=== PATIENT | female | born 1950 | race Caucasian/White ===

== ENCOUNTER 2016-03-15 07:16 | Day surgery (SDC) | payer OTHER ==
[2016-03-15] VITALS (11 sets, daily range): BP systolic 112–127; BP diastolic 67–79; PULSE 53–75; RESP 18; TEMP 97.7–98.6; O2SAT 95–100
[~2016-03-15] VITALS: Ht 165.1 cm; Wt 77.3 kg
[~2016-03-15 07:16] MED LIST: AMLO10 PO; BUPR-197 PO; ESTR0.5T PO; IRON18TA2 PO; LEXA20TA PO; ROPI1TAB72 PO; TAB-TAB PO; VITA10002 PO; VITA400C70 PO; XANA0.5T PO; Z.0.COMMODE-3:1; Z.0.CPM; Z.0.WALKERFRONT
[2016-03-15] MEDS ORDERED: METOPROLOL TARTRATE 25 MG TAB PO PRN (08:30)
[2016-03-15] MEDS ORDERED: LACTATED RINGER'S 1000 ML IV SCH (08:30)
[2016-03-15] MEDS ORDERED: LORazepam 1 MG TAB SL SCH (08:30)
[2016-03-15] MEDS ORDERED: INSULIN HUMAN REGULAR 1,000 UNITS/10 ML VIAL SQ PRN (08:30)
[2016-03-15] MEDS: SODIUM CHLORID 0.9% 500 ML INJ 500 ML IV SCH (08:30)
[2016-03-15] MEDS: SODIUM CHLORID 0.9% 500 ML IV SCH (08:30)
[2016-03-15] MEDS ORDERED: LEVOFLOXACIN 500 MG PREMIX INJ 100 ML IV ONE (08:30)
[2016-03-15 08:45] LABS: AUTOMATED NEUTROPHIL # 6.6 TH/MM3 (1.8-7.7); BASOPHIL # 0.1 TH/MM3 (0-0.2); BASOPHIL % 0.6 % (0.0-2.0); EOSINOPHIL # 0.1 TH/MM3 (0-0.4); EOSINOPHIL % 1.5 % (0.0-4.0); HEMATOCRIT 36.4 % (35.0-46.0); HEMO FLAGS DIFF FINAL; LYMPH % 16.6 % (9.0-44.0); LYMPHOCYTE # 1.4 TH/MM3 (1.0-4.8); MEAN CELL VOLUME 83.2 FL (80.0-100.0); MEAN CORPUSCULAR HEMOGLOBIN 27.3 PG (27.0-34.0); MEAN CORPUSCULAR HGB CONC 32.8 % (32.0-36.0); MONO % 5.3 % (0.0-8.0); PLATELET COUNT 239 TH/MM3 (150-450); RED BLOOD COUNT 4.38 MIL/MM3 (4.00-5.30); RED CELL DISTRIBUTION WIDTH 14.6 % (11.6-17.2); WHITE BLOOD COUNT 8.7 TH/MM3 (4.0-11.0)
[2016-03-15] MEDS ORDERED: AMLO5TAB2 PO (08:50)
[2016-03-15] MEDS ORDERED: BUPR150CR PO (08:50)
[2016-03-15] MEDS ORDERED: FERR325T PO (08:50)
[2016-03-15] MEDS ORDERED: MULTTAB67 PO (08:50)
[2016-03-15] MEDS ORDERED: LEXA20TA PO (08:50)
[2016-03-15] MEDS ORDERED: VITA10002 PO (08:50)
[2016-03-15] MEDS ORDERED: ALPR.5 PO (08:50)
[2016-03-15] MEDS ORDERED: APIX5TAB PO (08:50)
[2016-03-15] MEDS ORDERED: HYDR-3288 PO (08:50)
[2016-03-15] MEDS ORDERED: ROPI1TAB PO (08:50)
[2016-03-15] MEDS ORDERED: ESTR0.5T PO (08:50)
[2016-03-15 09:11] LABS: APTT (PATIENT) 28.6 SEC (24.3-30.1); INTERNATIONAL NORMALIZED RATIO 0.9 RATIO; PROTHROMBIN TIME - PATIENT 10.2 SEC (9.8-11.6)
[2016-03-15 09:21] LABS: BICARBONATE 29.3 MEQ/L (21.0-32.0); POTASSIUM 3.6 MEQ/L (3.5-5.1)
[2016-03-15] MEDS ORDERED: HEPARIN-D5W INJ 250 ML ONE (10:39)
[2016-03-15] MEDS ORDERED: fentaNYL CITRATE 250 MCG/5 ML AMP ONE (10:39)
[2016-03-15] MEDS ORDERED: ISOPROTERENOL HCL 1 MG/5 ML AMP ONE (10:39)
[2016-03-15] MEDS ORDERED: PROTAMINE SULFATE 50 MG/5 ML VIAL ONE (10:39)
[2016-03-15] MEDS ORDERED: HEPARIN SODIUM - IV 10,000 UNITS/10 ML VIAL ONE (10:40)
[2016-03-15] MEDS ORDERED: HEPARIN-NS/PF INJ 500 ML ONE (11:06)
[2016-03-15] MEDS ORDERED: oxyCODONE/ACETAMINOPHEN 5 MG/325 MG TAB PO PRN (13:00)
[2016-03-15] MEDS ORDERED: ATROPINE SULFATE 1 MG/ML VIAL IV PRN (13:00)
[2016-03-15] MEDS ORDERED: ONDANSETRON HCL 4 MG/2 ML VIAL IV PRN (13:00)
[2016-03-15] MEDS ORDERED: LORazepam 2 MG/ML VIAL IV PRN (13:00)
[2016-03-15] MEDS ORDERED: BACITRACIN OINT 0.9 GM PKT TOP ONE (13:00)
[2016-03-15] MEDS ORDERED: METOCLOPRAMIDE HCL 10 MG/2 ML VIAL IV PRN (13:00)
[2016-03-15] MEDS ORDERED: LIDOCAINE HCL 1% 50 ML VIAL INFIL PRN (13:00)
[2016-03-15] MEDS ORDERED: ePHEDrine/NS 25 MG/5 ML SYR IV ONE (13:47)
[2016-03-15] MEDS ORDERED: PROPOFOL 200 MG/20 ML AMP IV ONE (13:47)
[2016-03-15] MEDS ORDERED: NS 500 ML (EXCEL BAG) 500 ML BAG IV ONE (13:47)
[2016-03-15] MEDS ORDERED: NEOSTIGMINE 3 MG/3 ML SYR IV ONE (13:47)
[2016-03-15] MEDS ORDERED: ONDANSETRON HCL 4 MG/2 ML VIAL IV PUSH ONE (13:47)
[2016-03-15] MEDS ORDERED: DO NOT ADM ANY ANTICOAGULANT DRUGS XX PRN (14:00)
[2016-03-15] MEDS ORDERED: SODIUM CHLOR 0.9% 250 ML INJ 250 ML IV PRN (14:00)
[2016-03-15] MEDS: ALPRAZolam 0.5 MG TAB PO PRN ×2 (14:51→20:06)
[2016-03-15] MEDS: oxyCODONE/ACETAMINOPHEN 5 MG/325 MG TAB PO PRN ×2 (20:05→23:38)
[2016-03-15] MEDS: APIXABAN 5 MG TABLET PO SCH (20:06)
[2016-03-15] MEDS: buPROPion HCL 150 MG SUSTAINED RELEASE TAB PO SCH (20:55)
[2016-03-16] VITALS (13 sets, daily range): BP systolic 106–107; BP diastolic 54–67; PULSE 60–77; RESP 18; TEMP 98.1–98.5; O2SAT 94–98
[2016-03-16] MEDS: SODIUM CHLORID 0.9% 500 ML IV SCH (01:10)
[2016-03-16] MEDS: SODIUM CHLORID 0.9% 500 ML INJ 500 ML IV SCH (01:10)
[2016-03-16] MEDS: oxyCODONE/ACETAMINOPHEN 5 MG/325 MG TAB PO PRN (05:07)
[2016-03-16 07:50] LABS: APTT (PATIENT) 27.8 SEC (24.3-30.1); INTERNATIONAL NORMALIZED RATIO 0.9 RATIO; PROTHROMBIN TIME - PATIENT 10.3 SEC (9.8-11.6)
--- NOTE | 2016-03-16 08:21 | PD.CARD.PN ---
Subjective Subjective Remarks No complaints. Objective Medications Current Medications Medications (Trade) Dose Ordered Sig/Carol Route Start Time Stop Time Status Last Admin Sodium Chloride 500 ml @ 30 mls/hr [id number] IV 03/15/16 08:30 03/16/16 01:10 Lactated Ringer's 1,000 ml @ 30 mls/hr Q24H IV 03/15/16 08:30 (NS 500 ml Inj) 500 ml @ 30 mls/hr [id number] IV 03/15/16 08:30 03/16/16 08:29 (Flu (Quadrivalent) Vaccine Inj) 0.5 ml ONCE ONCE IM 03/16/16 10:00 03/16/16 10:01 (Percocet 5-325 Mg) 1 tab Q4H PRN PO 03/15/16 13:00 03/16/16 05:07 (Percocet 5-325 Mg) 2 tab Q4H PRN PO 03/15/16 13:00 03/15/16 14:52 (Ativan Inj) 0.5 mg UNSCH PRN IV 03/15/16 13:00 03/16/16 12:59 Atropine Sulfate 0.5 mg 0.5 mg UNSCH PRN IV 03/15/16 13:00 (NS 250 ml Inj) 250 ml @ 500 mls/hr ONCE PRN IV 03/15/16 14:00 03/16/16 13:59 (Reglan Inj) 10 mg Q4H PRN IV 03/15/16 13:00 (Zofran Inj) 4 mg Q4H PRN IV 03/15/16 13:00 (Xylocaine 1% Inj (50 ml)) 10 ml UNSCH PRN INFIL 03/15/16 13:00 03/16/16 12:59 (Xanax) 0.5 mg Q8H PRN PO 03/15/16 13:00 03/15/16 20:06 (Norvasc) 5 mg DAILY PO 03/16/16 09:00 (Eliquis) 5 mg BID PO 03/15/16 21:00 03/15/16 20:06 (Wellbutrin Sr) 150 mg Q12HR PO 03/15/16 21:00 03/15/16 20:55 (Vitamin B12) 1,000 mcg DAILY PO 03/16/16 09:00 (Lexapro) 20 mg DAILY PO 03/16/16 09:00 (Estradiol) 0.5 mg DAILY PO 03/16/16 09:00 (Ferrous Sulfate) 325 mg DAILY PO 03/16/16 09:00 (Theragran) 1 tab DAILY PO 03/16/16 09:00 (Requip) 1 mg HS PO 03/15/16 21:00 03/15/16 20:55 Miscellaneous Information ALL NURSING DEPARTME... UNSCH PRN XX 03/15/16 14:00 03/16/16 13:59 Vital Signs / I&O Vital Signs Date Time Temp Pulse Resp B/P Pulse Ox O2 Delivery O2 Flow Rate FiO2 03/16/16 06:02 77 03/16/16 05:55 60 03/16/16 04:08 63 03/16/16 03:23 62 03/16/16 03:01 98.1 65 18 106/54 97 03/16/16 02:36 74 03/16/16 01:29 63 03/16/16 00:28 63 03/15/16 23:01 97.7 75 18 118/67 100 03/15/16 23:01 65 03/15/16 22:01 68 03/15/16 21:11 95 Nasal Cannula 2.00 03/15/16 21:01 69 03/15/16 20:01 65 03/15/16 19:01 69 03/15/16 19:01 97.8 69 18 125/79 100 03/15/16 18:01 65 03/15/16 17:08 59 03/15/16 16:15 16 03/15/16 16:08 98.2 73 18 127/77 95 03/15/16 16:08 73 03/15/16 14:56 98.6 63 18 112/69 95 03/15/16 14:00 71 14 110/62 98 Nasal Cannula 2 03/15/16 13:45 64 14 116/63 98 Nasal Cannula 2 03/15/16 13:30 66 12 123/70 96 Nasal Cannula 2 03/15/16 13:25 97.7 68 15 121/70 92 Nasal Cannula 2 03/15/16 08:30 97.7 53 18 126/71 98 I/O 03/15/16 03/15/16 03/15/16 03/16/1617 1/24/17 07:00 15:00 23:00 07:00 15:00 23:00 Intake Total 1600 ml 580 ml 480 ml Output Total 150 ml 350 ml 550 ml Balance 1450 ml 230 ml -70 ml Intake Oral 480 ml 480 ml IV Total 100 ml Other 1600 ml Output Urine Total 100 ml 350 ml 550 ml Stool Total 0 ml Estimated Blood Loss 50 ml # Voids 1 # Bowel Movements 0 0 Physical Exam GENERAL: Well-nourished, well-developed patient. SKIN: Warm and dry. Groin sites soft with no hematoma or bleeding. HEAD: Normocephalic. EYES: No scleral icterus. No injection or drainage. NECK: Supple, trachea midline. No JVD or lymphadenopathy. CARDIOVASCULAR: Regular rate and rhythm without murmurs, gallops, or rubs. RESPIRATORY: Breath sounds equal bilaterally. No accessory muscle use. GASTROINTESTINAL: Abdomen soft, non-tender, nondistended. EXTREMITIES: No cyanosis, or edema. NEUROLOGICAL: Awake, alert, and oriented x 3. Non-focal. Laboratory Laboratory Tests Test 03/16/16 06:20 Prothrombin Time 10.3 SEC Prothromb Time International 0.9 RATIO Ratio Activated Partial 27.8 SEC Thromboplast Time Assessment and Plan Problem List: (1) S/P ablation of atrial fibrillation Assessment and Plan: Groin sites stable, continue Eliquis, DC home, f/u with Dr. Kelley in 3 weeks. (2) Atrial fibrillation Assessment and Plan: NSR s/p ablation. Discussed Condition With [facility] pt., RN, Dr. Kelley. Problem Qualifiers (1) Atrial fibrillation: Qualified Code: I48.0 - Paroxysmal atrial fibrillation Concepción Calero Mar 16, 2016 08:21
[2016-03-16] MEDS: ALPRAZolam 0.5 MG TAB PO PRN (08:22)
[2016-03-16] MEDS: APIXABAN 5 MG TABLET PO SCH (08:22)
[2016-03-16] MEDS: buPROPion HCL 150 MG SUSTAINED RELEASE TAB PO SCH (08:24)
[2016-03-16] MEDS ORDERED: FERROUS SULFATE 325 MG (65 MG ELEMENTAL IRON) TAB PO SCH (09:00)
[2016-03-16] MEDS ORDERED: MULTIVITAMIN TAB PO SCH (09:00)
[2016-03-16] MEDS ORDERED: amLODIPine BESYLATE 5 MG TAB PO SCH (09:00)
[2016-03-16] MEDS ORDERED: ESCITALOPRAM OXALATE 20 MG TAB PO SCH (09:00)
[2016-03-16] MEDS ORDERED: CYANOCOBALAMIN 1,000 MCG TAB PO SCH (09:00)
[2016-03-16] MEDS ORDERED: ESTRADIOL 1 MG TAB PO SCH (09:00)
[2016-03-16] MEDS ORDERED: INFLUENZA VIRUS VACCINE (QUADRIVALENT) 0.5 ML SYR IM ONE (10:00)
--- NOTE | 2016-03-16 17:49 | EKG ---
Date Performed: 03/15/2016 Time Performed: 08:13:20 PTAGE: 65 years EKG: Sinus Bradycardia Prolonged QT interval When compared to previous tracing, the patient is n ow Bradycardic. Borderline ECG PREVIOUS TRACING : 09/26/2015 16.48.47 DOCTOR: Autumn Falcon Interpretating Date/Time 03/16/2016 17:48:33
--- NOTE | 2016-03-16 17:51 | EKG ---
Date Performed: 03/16/2016 Time Performed: 04:52:38 PTAGE: 65 years EKG: Sinus rhythm Since previous tracing, no significant change noted Normal ECG PREVIOUS TRACING : 03/15/2016 13.45 DOCTOR: Autumn Falcon Interpretating Date/Time 03/16/2016 17:50:32
--- NOTE | 2016-03-16 17:51 | EKG ---
Date Performed: 03/15/2016 Time Performed: 13:45:55 PTAGE: 65 years EKG: Sinus rhythm baseline artifact NONSPECIFIC T-WAVE ABNORMALITY When compared to previous tracing, the patient is n o longer Bradycardic. BORDERLINE ECG PREVIOUS TRACING : 03/15/2016 08.13 DOCTOR: Autumn Falcon Interpretating Date/Time 03/16/2016 17:50:21
--- NOTE | 2016-04-10 12:39 | PD.CARD ---
Atrial Fibrillation Ablation PROCEDURE DATE: Mar 15, 2016 PROCEDURES PERFORMED: 1. Electrophysiology study on Isuprel infusion 2. CS cannulation 3. 3-D mapping 4. Transseptal approach 5. Right and left heart catheterization 6. Intracardiac echo 7. Radiofrequency ablation of atrial fibrillation 8. Pulmonary vein isolation 9. Posterior wall ablation 10. Mitral line creation 11. Anterior wall ablation Very complex case INDICATIONS FOR THE PROCEDURE Ms. Edward is a 65-year-old female with hx of recurrent episodes of atrial fibrillation, symptomatic, on anticoagulation scheduled electrophysiology study and ablation. The risks, the nature and the benefits of the procedure were clearly stated to her. The risks include pneumothorax, cardiac perforation, stroke, need for open heart surgery and even . The patient understood and agreed to proceed. DESCRIPTION OF THE PROCEDURE IN DETAIL As written informed consent was obtained prior to esophageal echocardiogram, the patient was kept on the table where she was prepped and draped in the usual sterile fashion. Conscious sedation was initiated and maintained throughout the procedure by the anesthesiologist. Once sedation was verified, the right and left inguinal areas were anesthetized with 2% Xylocaine. Using modified Seldinger technique, the left femoral vein was cannulated on three occasions, three guidewires were advanced. Over the wire a 6, 7 and a 10-Indian Hemaquet were advanced. Then the left femoral artery was cannulated on one occasion, one guidewire was advanced. Over the wire a 4-Indian Hemaquet was advanced. Then the right femoral vein was cannulated on one occasion, one guidewire was advanced. Over the wire a 8-Indian Hemaquet was advanced. Then under fluoroscopic guidance through the 6 and 7-Indian Hemaquet, two 5-Indian Linda curved quadripolar electrophysiology catheters were advanced and placed around the His as well as coronary sinus. Basic interval was measured. The patient was in sinus. Through the 10-Indian Hemaquet, a Cordis Palacio [employer] intracardiac echo catheter was advanced and placed at the right atrium. Multiple view was obtained. There was no pericardial effusion, pulmonary vein was seen, atrial septal was visualized. Then the 8-Indian Hemaquet in the right femoral vein was exchanged for Agilis transseptal sheath that was placed all the way to the superior vena cava. Through the sheath a Jacqui needle was advanced, then the sheath, the dilator and the needle were progressed until foci engaged. Once engaged, the needle was advanced. RF was delivered for 2 seconds. I was able to cross into the left atrium. Once the needle crossed, the dilator was advanced. Once the dilator crossed, the sheath was advanced. Once the sheath crossed, the dilator and the needle were removed. At this point I did flood the system and fluid movement was seen in the left atrium the indicates the sheath is in good position. The patient already received 10,000 units of heparin. The goal is to keep an ACT around 350 during ablation. Then through the sheath a [employer] 20 pulse circumferential catheter was advanced. Using [employer] endocardial solution mapping system, a two-dimensional configuration of the left atrium was obtained. Points were taken at the left superior and inferior veins, right superior and inferior veins, mitral valve, and appendages. Then through the sheath a [employer] Sekou TactiCath 65cm 3.5mm irrigated tipped mapping and radiofrequency ablation catheter was advanced. Esophageal probe was placed temperature monitoring during ablation. When it increased to 0.5 degrees Celsius above baseline, I moved to a different area of the atrium. First I did isolate the left superior and inferior vein. A sleetmute was made around the veins. Posterior was ablated. A mitral line was created. Then the right superior and inferior veins were isolated. I did remap the atrium. The circumferential catheter was advanced into the veins. There was no signal into the vein, pacing from the vein showed no conduction to the atrium. Isuprel infusion was initiated at 10 mcg for 10 minutes. No tachyarrhythmia was induced, post Isuprel no tachyarrhythmia was induced. At that point the procedure was complete. All catheters were removed, atrial septal sheath was exchanged for 9-Indian Hemaquet, intracardiac echo showed no pericardial effusion. There is still good flow in the pulmonary vein. The patient is going to be transferred to the recovery room. No incident report. The patient tolerated the procedure. Blood loss was minimal. FINDINGS 1. Electrocardiogram: At baseline the patient was in sinus rhythm. Post procedure electrocardiogram was unchanged. 2. Basic interval: Base cycle length was around 1244. AH at 86 and HV at 52 milliseconds. 3. Tachyarrhythmia: Atrial fibrillation was mapped and ablated. The ablation was successful. CONCLUSION Successful electrophysiology study, mapping, radiofrequency ablation of atrial fibrillation, left atrial tachycardia, pulmonary vein isolation, posterior ablation, mitral valve isolation, mitral line creation, roof line creation, floor line creation, left atrial tachycardia, and cardioversion. COMMENTS AND RECOMMENDATIONS The patient is going to be transferred to the telemetry unit. Will be observed and when stable can be discharged home. Moshe Kelley MD Apr 10, 2016 12:39
--- NOTE | 2016-04-10 15:00 | ETE ---
Study Study Date:03/15/2016 STUDY CONCLUSIONS SUMMARY - Left ventricle: The cavity size was normal. Wall thickness was normal. Systolic function was normal. The estimated ejection fraction was in the range of 60% to 65%. Wall motion was normal; there were no regional wall motion abnormalities. - Aortic valve: No evidence of vegetation. - Mitral valve: No evidence of vegetation. - Left atrium: No evidence of thrombus in the atrial cavity or appendage. No evidence of thrombus in the atrial cavity or appendage. - Right atrium: No evidence of thrombus in the atrial cavity or appendage. - Atrial septum: No defect or patent foramen ovale was identified. Echo contrast study showed no eefqg-yr-tiyw atrial level shunt, at baseline or with provocation. - Tricuspid valve: No evidence of vegetation. - Pulmonic valve: No evidence of vegetation. If LV function is below 40, please consider prescribing an ACEI or ARB or document rationale for non-use. PROCEDURE DATA Consent: The risks, benefits, and alternatives to the procedure were explained to the patient and informed consent was obtained. Procedure: Initial setup. The patient was brought to the laboratory in the fasting state. Intravenous access was obtained. Surface ECG leads and pulse oximetric signals were monitored. Sedation. Conscious sedation was administered by cardiology staff. Transesophageal echocardiography. Topical anesthesia was obtained using viscous lidocaine. A transesophageal probe was inserted by the attending endoscope technician. Image quality was good. Study completion: All IVs inserted during the procedure were removed. The patient tolerated the procedure well. There were no complications. Transesophageal echocardiography. 2D, complete spectral Doppler, and color Doppler. CARDIAC ANATOMY LEFT VENTRICLE: The cavity size was normal. Wall thickness was normal. Systolic function was normal. The estimated ejection fraction was in the range of 60% to 65%. Wall motion was normal; there were no regional wall motion abnormalities. AORTIC VALVE: Structurally normal valve. Trileaflet; normal thickness leaflets. Cusp separation was normal. No evidence of vegetation. Doppler: No significant regurgitation. Aorta: - There was no atheroma. There was no evidence for dissection. Aortic root: The aortic root was not dilated. Ascending aorta: The ascending aorta was normal in size. Aortic arch: The aortic arch was normal in size. Descending aorta: The descending aorta was normal in size. MITRAL VALVE: Structurally normal valve. Leaflet separation was normal. No evidence of vegetation. Doppler: Trace regurgitation. LEFT ATRIUM: The atrium was normal in size. No evidence of thrombus in the atrial cavity or appendage. No evidence of thrombus in the atrial cavity or appendage. The appendage was morphologically a left appendage, multilobulated, and of normal size. Emptying velocity was normal. ATRIAL SEPTUM: No defect or patent foramen ovale was identified. Echo contrast study showed no yjbka-he-eysr atrial level shunt, at baseline or with provocation. RIGHT VENTRICLE: The cavity size was normal. Wall thickness was normal. Systolic function was normal. PULMONIC VALVE: Structurally normal valve. No evidence of vegetation. TRICUSPID VALVE: Structurally normal valve. Leaflet separation was normal. No evidence of vegetation. Doppler: Trace regurgitation. PULMONARY ARTERY: The main pulmonary artery was normal-sized. RIGHT ATRIUM: The atrium was normal in size. No evidence of thrombus in the atrial cavity or appendage. The appendage was morphologically a right appendage. PERICARDIUM: There was no pericardial effusion. Prepared and signed by Moshe Kelley [id number]
[2016-06-23] MEDS ORDERED: HOME1TAB8 PO (10:30)
[2016-06-23] MEDS ORDERED: BC FPOW12 (10:31)
== END 2016-03-16 10:51 | disposition home or self-care (01) ==
LOC: HDOC 07:16 → HDIC 07:17 → HCIN 16:07 → HDOC 03-16 10:51
PROVIDERS: ATTEND Internal Medicine Interventional Cardiology
DX: I48.0 Paroxysmal atrial fibrillation (principal); I25.10 Atherosclerotic heart disease of native coronary artery without angina pectoris; I10 Essential (primary) hypertension; E11.9 Type 2 diabetes mellitus without complications; Z79.01 Long term (current) use of anticoagulants
CPT/HCPCS: 00537; 80048; 85002; 85025; 85610; 85730; 93005; 93312; 93320; 93325; 93613; 93623; 93656; 93662; C1730; C1731; C1732; C1759; C1766; C2630; J1644; J1956; J2405; J2710; J2720; J3010; J7040; 93620

== ENCOUNTER 2016-06-17 20:45 | Emergency (ER) | payer OTHER ==
[~2016-06-17] VITALS: Ht 165.1 cm; Wt 78.0 kg
[~2016-06-17 20:45] MED LIST changes: +ALPR.5 PO; -AMLO10 PO; +AMLO5TAB2 PO; +APIX5TAB PO; -BUPR-197 PO; +BUPR150CR PO; +FERR325T PO; +HYDR-3288 PO; -IRON18TA2 PO; +MULTTAB67 PO; +ROPI1TAB PO; -ROPI1TAB72 PO; -TAB-TAB PO; -VITA400C70 PO; -XANA0.5T PO; -Z.0.COMMODE-3:1; -Z.0.CPM; -Z.0.WALKERFRONT
[2016-06-17 20:54] VITALS: BP 167/78; PULSE 93; RESP 16; TEMP 98.8; O2SAT 96
[2016-06-17] MEDS ORDERED: SODIUM CHLOR 0.9% 1000 ML INJ 1,000 ML IV ONE (21:06)
--- NOTE | 2016-06-17 21:13 | PD ---
HPI Chief Complaint: Seizure Time Seen by Provider: 21:11 Travel History International Travel<30 days: No Contact w/Intl Traveler<30days: No Traveled to known affect area: No History of Present Illness HPI 65-year-old female with history of hypoglycemia, anxiety, depression, hypertension, migraines and chronic back pain ON ELIQUIS presents to the ED by EMS after a witnessed 3-4 minute seizure at [facility]. EMS state that bystanders reports "jerking" during the seizure. She fell into a shelving unit, but did not lose consciousness. Patient denies history of seizures, however per EMS report the patient has had a seizure in [facility] previously. On presentation the patient is alert, sitting up in the stretcher answering questions appropriately. She does have some confusion about the date but is otherwise oriented. She denies headache, dizziness, vision changes, chest pain, shortness of breath, abdominal pain, nausea, vomiting, dysuria, weakness of the extremities. She is unsure why she takes Eliquis. She endorses compliance with her daily medications. She is followed by Dr. GANDHI Past Medical History Arthritis: Yes Anxiety: Yes Depression: Yes Cancer: No Cardiovascular Problems: Yes Chest Pain: No Diabetes: Yes Patient Takes Glucophage: No Diminished Hearing: No Endocrine: Yes (HYPOGLYCEMIA) Gastrointestinal Disorders: No Glaucoma: No Genitourinary: No Headaches: Yes Hepatitis: No Hiatal Hernia: Yes Hypertension: Yes Immune Disorder: No Medical other: Yes Musculoskeletal: Yes (LEFT KNEE, CHRONIC LOW BACK PAIN, CERVICAL HERNIATED/ BULDGING DISCS) Psychiatric: Yes (DEPRESSION) Reproductive: No Respiratory: Yes (SLEEP APNEA) Integumentary: No Migraines: Yes Thyroid Disease: No Menopausal: Yes Past Surgical History Abdominal Surgery: Yes (GASTRIC BYPASS) Body Medical Devices: NONE Ear Surgery: No Eye Surgery: No Gynecologic Surgery: Yes (HYSTERECTOMY,HARRY SALPINGECTOMY,OOPHERECTOMY, OVARIAN MASS REMOVAL) Hysterectomy: Yes Oral Surgery: No Pacemaker: No Thoracic Surgery: Yes (GASTRIC BYPASS) Other Surgery: Yes (LEFT KNEE, HERNIA REPAIR, HYSTERECTOMY, OOPHORECTOMY) Social History Alcohol Use: Yes (rare) Tobacco Use: Yes (quit 20 years ago) Substance Use: No Allergies-Medications (Allergen,Severity, Reaction): Coded Allergies: Lactose (Verified Allergy, Intermediate, GI UPSET, 06/17/16) Reported Meds & Prescriptions Reported Meds & Active Scripts Active Reported Eliquis (Apixaban) 5 Mg Tab 5 Mg PO BID Xanax (Alprazolam) 0.5 Mg Tab 0.5 Mg PO Q8H PRN Wellbutrin SR 12 HR (Bupropion HCl) 150 Mg Tab 150 Mg PO Q12HR Ropinirole 1 Mg Tab 1 Mg PO HS Gifford (Hydrocodone-Acetaminophen) 7.5-325 mg Tab 1 Tab PO Q6H PRN Multiple Vitamin 1 Tab 1 Tab PO DAILY Lexapro (Escitalopram Oxalate) 20 Mg Tab 20 Mg PO DAILY Ferrous Sulfate 325 Mg Tab 325 Mg PO DAILY Estradiol 0.5 Mg Tab 0.5 Mg PO DAILY Vitamin B-12 (Cyanocobalamin) 1,000 Mcg Tab 1,000 Mcg PO DAILY Amlodipine (Amlodipine Besylate) 5 Mg Tab 5 Mg PO DAILY Review of Systems Except as stated in HPI: all other systems reviewed are Neg Physical Exam Narrative GENERAL: Well-nourished, well-developed white female in no acute distress. Upon the stretcher, answering questions appropriately. SKIN: Warm and dry. Thorough evaluation reveals no edema, ecchymosis, abrasion , or laceration of the skin. HEAD: Normocephalic. Atraumatic. No raccoon eyes or tejeda sign. No tenderness to palpation of the skull. No bony step-offs. No malocclusion of the teeth. EYES: No scleral icterus. No injection or drainage. PERRLA. EOMI. ENT: Pearly aly tympanic membranes bilaterally. Nasal mucosa is moist. Oropharynx without erythema, edema or exudate. NECK: Supple, trachea midline. No JVD or lymphadenopathy. No midline tenderness to palpation. Pain elicited with flexion of the neck. CARDIOVASCULAR: Regular rate and rhythm without murmurs, gallops, or rubs. 2+ DP and radial pulses bilaterally. RESPIRATORY: Breath sounds clear and equal bilaterally. No accessory muscle use. GASTROINTESTINAL: Abdomen soft, non-tender, nondistended. + Bowel sounds MUSCULOSKELETAL: No cyanosis, or edema. No tenderness to palpation or limitations to range of motion of the joints of the upper and lower extremities bilaterally. NEUROLOGICAL: Awake and alert. Cranial nerves II through XII intact. Motor and sensory grossly within normal limits. 5/5 muscle strength in all muscle groups. Normal speech. BACK: No obvious deformity. No CVA tenderness. Data Data Last Documented VS Vital Signs Date Time Temp Pulse Resp B/P Pulse Ox O2 Delivery O2 Flow Rate FiO2 06/17/16 22:47 62 18 138/60 96 Room Air 06/17/16 20:54 98.8 Orders Complete Blood Count With Diff (06/17/16 21:06) Alcohol (Ethanol) (06/17/16 21:06) Drug Screen, Random Urine (06/17/16 21:06) Electrocardiogram (06/17/16 ) Ct Brain W/O Iv Contrast(Rout) (06/17/16 ) Blood Glucose (06/17/16 21:06) Ecg Monitoring (06/17/16 21:06) Iv Access Insert/Monitor (06/17/16 21:06) Oximetry (06/17/16 21:06) Comprehensive Metabolic Panel (06/17/16 21:06) Sodium Chlor 0.9% 1000 Ml Inj (Ns 1000 M (06/17/16 21:06) Sodium Chloride 0.9% Flush (Ns Flush) (06/17/16 21:15) Urinalysis - C+S If Indicated (06/17/16 21:06) Ct Cerv Spine W/O Contrast (06/17/16 21:06) Ckmb (Isoenzyme) Profile (06/17/16 21:19) Troponin I (06/17/16 21:19) Chest, Single Ap (06/17/16 21:19) CKMB (06/17/16 21:05) CKMB% (06/17/16 21:05) Acetamin-Hydrocod 325-5 Mg (Gifford 5-325 (06/17/16 22:30) Shoulder, Complete (>2vws) (06/17/16 22:44) Labs Laboratory Tests Test 06/17/16 06/17/16 21:05 22:22 White Blood Count 11.8 TH/MM3 Red Blood Count 4.63 MIL/MM3 Hemoglobin 12.6 GM/DL Hematocrit 38.3 % Mean Corpuscular Volume 82.8 FL Mean Corpuscular Hemoglobin 27.2 PG Mean Corpuscular Hemoglobin 32.8 % Concent Red Cell Distribution Width 14.2 % Platelet Count 271 TH/MM3 Mean Platelet Volume 8.5 FL Neutrophils (%) (Auto) 78.2 % Lymphocytes (%) (Auto) 13.7 % Monocytes (%) (Auto) 6.4 % Eosinophils (%) (Auto) 1.1 % Basophils (%) (Auto) 0.6 % Neutrophils # (Auto) 9.3 TH/MM3 Lymphocytes # (Auto) 1.6 TH/MM3 Monocytes # (Auto) 0.8 TH/MM3 Eosinophils # (Auto) 0.1 TH/MM3 Basophils # (Auto) 0.1 TH/MM3 CBC Comment DIFF FINAL Differential Comment Sodium Level 140 MEQ/L Potassium Level 4.0 MEQ/L Chloride Level 106 MEQ/L Carbon Dioxide Level 24.6 MEQ/L Anion Gap 9 MEQ/L Blood Urea Nitrogen 21 MG/DL Creatinine 1.08 MG/DL Estimat Glomerular Filtration 51 ML/MIN Rate Random Glucose 69 MG/DL Calcium Level 8.6 MG/DL Total Bilirubin 0.2 MG/DL Aspartate Amino Transf 20 U/L (AST/SGOT) Alanine Aminotransferase 22 U/L (ALT/SGPT) Alkaline Phosphatase 72 U/L Total Creatine Kinase 104 U/L Creatine Kinase MB 2.7 NG/ML Troponin I LESS THAN 0.02 NG/ML Total Protein 6.3 GM/DL Albumin 3.1 GM/DL Ethyl Alcohol Level LESS THAN 3 MG/DL Urine Color LIGHT-YELLOW Urine Turbidity HAZY Urine pH 5.0 Urine Specific [place] 1.012 Urine Protein NEG mg/dL Urine Glucose (UA) NEG mg/dL Urine Ketones NEG mg/dL Urine Occult Blood NEG Urine Nitrite NEG Urine Bilirubin NEG Urine Urobilinogen LESS THAN 2.0 MG/DL Urine Leukocyte Esterase NEG Urine RBC 1 /hpf Urine WBC 3 /hpf Urine Squamous Epithelial 3 /hpf Cells Urine Bacteria OCC /hpf Urine Mucus FEW /lpf Microscopic Urinalysis Comment CULT NOT INDICATED Urine Opiates Screen NEG Urine Barbiturates Screen NEG Urine Amphetamines Screen NEG Urine Benzodiazepines Screen NEG Urine Cocaine Screen NEG Urine Cannabinoids Screen NEG MDM Medical Decision Making Medical Screen Exam Complete: Yes Emergency Medical Condition: Yes Medical Record Reviewed: Yes Interpretation(s) EKG rate 91, sinus rhythm. TX interval 123, QRS 93, QTC 421. Normal axis. No acute ST changes. Reviewed by Dr. Mejias. Differential Diagnosis seizure versus pseudoseizure versus hypoglycemia versus electrolyte abnormality versus ACS versus ICH versus other Narrative Course 65-year-old female with history of hypoglycemia, anxiety, depression, hypertension, migraines and chronic back pain ON ELIQUIS presents to the ED by EMS after a witnessed 3-4 minute tonic-clonic seizure at [facility].. Patient denies history of seizures, however per EMS report the patient has had a seizure in [facility] previously. On presentation the patient is alert, sitting up in the stretcher answering questions appropriately. She does have some confusion about the date but is otherwise oriented. She denies headache, dizziness, vision changes, chest pain, shortness of breath, abdominal pain, nausea, vomiting, dysuria, weakness of the extremities. She is unsure why she takes Eliquis. Vitals reviewed. Physical exam reveals a nontoxic-appearing white female in no acute distress. She is sitting up on the stretcher, alert, oriented. No focal neural deficits. Some pain elicited with flexion of the neck. Chest clear to auscultation bilaterally. Abdomen soft, nontender. Patient is moving extremities spontaneously, equal strength in upper and lower extremities bilaterally. IV was established. Patient was presents contenders monitoring. She was administered 1 L fluid bolus. CBC: WBC 11.8. Hemoglobin 12.6. CMP: BUN 21, creatinine 1.08 glucose 69. Creatinine at patient's baseline. UA: No culture indicated Cardiac enzymes: Negative 1 Chest x-ray: No acute cardiopulmonary disease per radiology read EKG: As above. CT of the cervical spine: Slight neural foraminal compromise on the right C5-C6 CT of the head: Unremarkable per radiology read. Review of record reveals the patient is on Eloquis due to recent history of A. fib. Course of treatment the patient began to complain of right shoulder pain and headache. She is administered 5 mg Lortab. X-ray was ordered and reveals no acute bony injury per radiology read. Patient's is at bedside. I answered all her questions. The patient is cleared for outpatient evaluation by neurology. She does state that she has follow-up with Dr. Dwyer. She is instructed to resume all home medications, avoid driving, follow up with Dr. Dwyer. She indicated understanding of instructions and is agreeable to the care plan. The patient is stable and discharged home. Diagnosis Primary Impression: Seizure Referrals: Neurologist Patient Instructions: General Instructions, New-Onset Seizure in Adults (ED) Additional Instructions: Rest, hydrate. Resume all home medications as prescribed. Follow-up with the neurologist as discussed. Return to the ED for any urgent or emergent medical condition. Disposition: 01 DISCHARGE HOME Condition: Stable Savannah Gonsalves Jun 17, 2016 21:13
[2016-06-17] MEDS ORDERED: SODIUM CHLORIDE 0.9% FLUSH 10 ML FLUSH IVF PRN (21:15)
[2016-06-17 21:32] LABS: AUTOMATED NEUTROPHIL # 9.3 TH/MM3 (1.8-7.7); BASOPHIL # 0.1 TH/MM3 (0-0.2); BASOPHIL % 0.6 % (0.0-2.0); EOSINOPHIL # 0.1 TH/MM3 (0-0.4); EOSINOPHIL % 1.1 % (0.0-4.0); HEMATOCRIT 38.3 % (35.0-46.0); HEMO FLAGS DIFF FINAL; LYMPH % 13.7 % (9.0-44.0); LYMPHOCYTE # 1.6 TH/MM3 (1.0-4.8); MEAN CELL VOLUME 82.8 FL (80.0-100.0); MEAN CORPUSCULAR HEMOGLOBIN 27.2 PG (27.0-34.0); MEAN CORPUSCULAR HGB CONC 32.8 % (32.0-36.0); MONO % 6.4 % (0.0-8.0); NEUT % 78.2 % (16.0-70.0); PLATELET COUNT 271 TH/MM3 (150-450); RED BLOOD COUNT 4.63 MIL/MM3 (4.00-5.30); RED CELL DISTRIBUTION WIDTH 14.2 % (11.6-17.2); WHITE BLOOD COUNT 11.8 TH/MM3 (4.0-11.0)
[2016-06-17 21:39] LABS: ANION GAP 9 MEQ/L (5-15)
[2016-06-17 21:43] LABS: ALKALINE PHOSPHATASE 72 U/L (45-117); ALT (GPT) 22 U/L (10-53); AST (GOT) 20 U/L (15-37); BICARBONATE 24.6 MEQ/L (21.0-32.0); BLOOD UREA NITROGEN 21 MG/DL (7-18); CHLORIDE 106 MEQ/L (98-107); GLOMERULAR FILTRATION RATE 51 ML/MIN (>89); SODIUM (NA) 140 MEQ/L (136-145); TOTAL BILIRUBIN ADULT 0.2 MG/DL (0.2-1.0)
--- NOTE | 2016-06-17 21:44 | RADRPT ---
EXAM DATE/TIME: 06/17/2016 21:37 [facility] COMPARISON: CT BRAIN W/O CONTRAST, September 26, 2015, 17:04. INDICATIONS : Trauma, fall during seizure. RADIATION DOSE: 56.35 CTDIvol (mGy) MEDICAL HISTORY : Hypertension. Diabetes mellitus type 2. Osteoporosis. SURGICAL HISTORY : None. ENCOUNTER: Initial ACUITY: 1 day PAIN SCALE: 5/10 LOCATION: cranial TECHNIQUE: Multiple contiguous axial images were obtained of the head. Using automated exposure control and adj ustment of the mA and/or kV according to patient size, radiation dose was kept as low as reasonably a chievable to obtain optimal diagnostic quality images. FINDINGS: There is no evidence for intracranial hemorrhage, mass effect, mass lesions, edema, or extra-axial fl uid collections. The visualized bony structures appear intact. The ventricles are normal size for t he patient's age. There are no signs of acute infarction for technique. CONCLUSION: Unremarkable study. Billy Trammell MD on June 17, 2016 at 21:41 Board Certified Radiologist. This report was verified electronically.
--- NOTE | 2016-06-17 21:48 | RADRPT ---
EXAM DATE/TIME: 06/17/2016 21:34 [facility] COMPARISON: CHEST SINGLE AP, September 26, 2015, 16:36. INDICATIONS : Chest pain MEDICAL HISTORY : None. SURGICAL HISTORY : None. ENCOUNTER: Initial ACUITY: 1 day PAIN SCORE: 0/10 LOCATION: Bilateral chest FINDINGS: The lungs are clear without infiltrate, nodule, or mass. There is no appreciable pleural effusion fo r technique. Heart and mediastinum are unremarkable. CONCLUSION: No acute cardiopulmonary disease. Billy Trammell MD on June 17, 2016 at 21:46 Board Certified Radiologist. This report was verified electronically.
[2016-06-17 21:50] LABS: CREATINE KINASE 104 U/L (26-192)
--- NOTE | 2016-06-17 22:00 | RADRPT ---
EXAM DATE/TIME: 06/17/2016 21:39 [facility] COMPARISON: No previous studies available for comparison. INDICATIONS : Trauma, fall during seizure. RADIATION DOSE: 29.57 CTDIvol (mGy) MEDICAL HISTORY : Hypertension. Diabetes mellitus type 2. Osteoporosis. SURGICAL HISTORY : None. ENCOUNTER: Initial ACUITY: 1 day PAIN SCALE: 5/10 LOCATION: neck TECHNIQUE: Volumetric scanning of the cervical spine was performed. Multiplanar reconstructions in the sagittal, coronal and oblique axial planes were performed. Using automated exposure control and adjustment o f the mA and/or kV according to patient size, radiation dose was kept as low as reasonably achievable to obtain optimal diagnostic quality images. FINDINGS: No evidence of subluxation. No definite fracture is seen for technique. C2-C3: Mild central disc protrusion is present without any significant compromise to the thecal sac or the e xiting nerve roots. C3-C4: Moderate degenerative changes are seen within the disc space and facets. Slight bulging disc and hype rtrophic changes are seen with indentation on the thecal sac and no significant compromise to the the chaya sac or the exiting nerve roots. There is bulging disc and hypertrophic change protruding into the right lateral recess without any significant compromise to the exiting nerve roots. C4-C5: Moderate degenerative changes are seen within the disc space and facets. Slight bulging disc and hype rtrophic changes are seen with indentation on the thecal sac and no significant compromise to the the chaya sac or the exiting nerve roots. There is bulging disc and hypertrophic change protruding into the right lateral recess without any significant compromise to the exiting nerve roots. C5-C6: Significant degenerative changes are seen within the disc space and facets. There is slight neural fo ramina compromise on the right due to asymmetrical bulging disc and hypertrophic changes. Slight bulg ing disc and hypertrophic changes are seen with indentation on the thecal sac and no significant comp romise to the thecal sac. C6-C7: There is no evidence for any significant compromise to the thecal sac, or the exiting nerve roots. N o appreciable thecal sac stenosis is seen. The neural foramina and lateral recess appear patent bila terally. Moderate degenerative changes are seen within the disc space and facets. C7-T1: There is no evidence for any significant compromise to the thecal sac, or the exiting nerve roots. N o appreciable thecal sac stenosis is seen. The neural foramina and lateral recess appear patent bila terally. CONCLUSION: Slight neuroforamina compromise right C5-C6. Billy Trammell MD on June 17, 2016 at 21:54 Board Certified Radiologist. This report was verified electronically.
[2016-06-17 22:02] LABS: CKMB 2.7 NG/ML (0.5-3.6)
[2016-06-17] MEDS ORDERED: ACETAMINOPHEN/HYDROcodone 325 MG/5 MG TAB PO ONE (22:30)
[2016-06-17 22:47] VITALS: BP 138/60; PULSE 62; RESP 18; O2SAT 96
[2016-06-17 22:57] LABS: AMPHETAMINE, URINE NEG (NEG); BARBITURATES, URINE NEG (NEG); COCAINE, URINE NEG (NEG)
[2016-06-17 23:00] LABS: BACTERIA, URINE OCC /hpf; BLOOD, URINE NEG (NEG); COMMENT (UR) CULT NOT INDICATED; CULTURE IF INDICATED CULT NOT INDICATED; GLUCOSE,URINE NEG (NEG); KETONE, URINE NEG (NEG); MUCUS URINE FEW /lpf (OCC); NITRITE,URINE NEG (NEG); SQUAMOUS EPITHELIAL CELL URINE 3 /hpf (0-5); URINE COLOR LIGHT-YELLOW (YELLW/STRAW)
--- NOTE | 2016-06-17 23:37 | RADRPT ---
EXAM DATE/TIME: 06/17/2016 23:10 [facility] COMPARISON: No previous studies available for comparison. INDICATIONS : Patient had alleged seizure and fell at the store landing on right shoulder. Right shoulder pain. MEDICAL HISTORY : None. SURGICAL HISTORY : None. ENCOUNTER: Initial ACUITY: 1 day PAIN SCORE: 7/10 LOCATION: Right shoulder FINDINGS: Bones of the right shoulder are intact and normally aligned. There is mild osteoarthritis of the acro mioclavicular joint. Radiographic appearance of the soft tissues within normal limits. CONCLUSION: No fracture or subluxation of the right shoulder. Carlos Dimas MD on June 17, 2016 at 23:35 Board Certified Radiologist. This report was verified electronically.
--- NOTE | 2016-06-17 23:59 | PD ---
Physical Exam Narrative I, Dr. Mejias, have reviewed the advance practice practitioner's documentation and am in agreement, met with the patient face to face, made the diagnosis, and the medical decision making was done by me. *My assessment and Findings: Seizure disorder vs. electrolyte abnormality vs. hypoglycemia 65yo F presents with what sounds like a seizure at [facility]. Pt is AAOx3, GCS 15 here. Pt has chronic neck and back pain and takes lortab at home. Pt given lortab here and states it helped with pain but wants more and has the medication at home. No focal neurologic deficit. Labs reviewed, mild leukocytosis at 11.8. Troponin negative. Alcohol negative. Utox negative. UA negative. CT brain negative. CT cspine showed slight neuroforamina compromise right C5-C6. Pt has appointment to follow up with neurosurgeon Dr. Dwyer. CXR negative. Xray right shoulder showed no fracture. VS stable. Return precautions given. Data Data Last Documented VS Vital Signs Date Time Temp Pulse Resp B/P Pulse Ox O2 Delivery O2 Flow Rate FiO2 06/17/16 22:47 62 18 138/60 96 Room Air 06/17/16 20:54 98.8 Orders Complete Blood Count With Diff (06/17/16 21:06) Alcohol (Ethanol) (06/17/16 21:06) Drug Screen, Random Urine (06/17/16 21:06) Electrocardiogram (06/17/16 ) Ct Brain W/O Iv Contrast(Rout) (06/17/16 ) Blood Glucose (06/17/16 21:06) Ecg Monitoring (06/17/16 21:06) Iv Access Insert/Monitor (06/17/16 21:06) Oximetry (06/17/16 21:06) Comprehensive Metabolic Panel (06/17/16 21:06) Sodium Chlor 0.9% 1000 Ml Inj (Ns 1000 M (06/17/16 21:06) Sodium Chloride 0.9% Flush (Ns Flush) (06/17/16 21:15) Urinalysis - C+S If Indicated (06/17/16 21:06) Ct Cerv Spine W/O Contrast (06/17/16 21:06) Ckmb (Isoenzyme) Profile (06/17/16 21:19) Troponin I (06/17/16 21:19) Chest, Single Ap (06/17/16 21:19) CKMB (06/17/16 21:05) CKMB% (06/17/16 21:05) Acetamin-Hydrocod 325-5 Mg ([place] 5-325 (06/17/16 22:30) Shoulder, Complete (>2vws) (06/17/16 22:44) Labs Laboratory Tests Test 06/17/16 06/17/16 21:05 22:22 White Blood Count 11.8 TH/MM3 Red Blood Count 4.63 MIL/MM3 Hemoglobin 12.6 GM/DL Hematocrit 38.3 % Mean Corpuscular Volume 82.8 FL Mean Corpuscular Hemoglobin 27.2 PG Mean Corpuscular Hemoglobin 32.8 % Concent Red Cell Distribution Width 14.2 % Platelet Count 271 TH/MM3 Mean Platelet Volume 8.5 FL Neutrophils (%) (Auto) 78.2 % Lymphocytes (%) (Auto) 13.7 % Monocytes (%) (Auto) 6.4 % Eosinophils (%) (Auto) 1.1 % Basophils (%) (Auto) 0.6 % Neutrophils # (Auto) 9.3 TH/MM3 Lymphocytes # (Auto) 1.6 TH/MM3 Monocytes # (Auto) 0.8 TH/MM3 Eosinophils # (Auto) 0.1 TH/MM3 Basophils # (Auto) 0.1 TH/MM3 CBC Comment DIFF FINAL Differential Comment Sodium Level 140 MEQ/L Potassium Level 4.0 MEQ/L Chloride Level 106 MEQ/L Carbon Dioxide Level 24.6 MEQ/L Anion Gap 9 MEQ/L Blood Urea Nitrogen 21 MG/DL Creatinine 1.08 MG/DL Estimat Glomerular Filtration 51 ML/MIN Rate Random Glucose 69 MG/DL Calcium Level 8.6 MG/DL Total Bilirubin 0.2 MG/DL Aspartate Amino Transf 20 U/L (AST/SGOT) Alanine Aminotransferase 22 U/L (ALT/SGPT) Alkaline Phosphatase 72 U/L Total Creatine Kinase 104 U/L Creatine Kinase MB 2.7 NG/ML Troponin I LESS THAN 0.02 NG/ML Total Protein 6.3 GM/DL Albumin 3.1 GM/DL Ethyl Alcohol Level LESS THAN 3 MG/DL Urine Color LIGHT-YELLOW Urine Turbidity HAZY Urine pH 5.0 Urine Specific [place] 1.012 Urine Protein NEG mg/dL Urine Glucose (UA) NEG mg/dL Urine Ketones NEG mg/dL Urine Occult Blood NEG Urine Nitrite NEG Urine Bilirubin NEG Urine Urobilinogen LESS THAN 2.0 MG/DL Urine Leukocyte Esterase NEG Urine RBC 1 /hpf Urine WBC 3 /hpf Urine Squamous Epithelial 3 /hpf Cells Urine Bacteria OCC /hpf Urine Mucus FEW /lpf Microscopic Urinalysis Comment CULT NOT INDICATED Urine Opiates Screen NEG Urine Barbiturates Screen NEG Urine Amphetamines Screen NEG Urine Benzodiazepines Screen NEG Urine Cocaine Screen NEG Urine Cannabinoids Screen NEG MDM Supervised Visit with LAURA: Yes Diagnosis Primary Impression: Seizure Referrals: Neurologist Patient Instructions: General Instructions, New-Onset Seizure in Adults (ED) Departure Forms: Tests/Procedures Additional Instruction: Rest, hydrate. Resume all home medications as prescribed. Follow-up with the neurologist as discussed. Return to the ED for any urgent or emergent medical condition. Disposition: 01 DISCHARGE HOME Condition: Stable Valencia Mejias DO Jun 17, 2016 23:59
--- NOTE | 2016-06-18 07:49 | EKG ---
Date Performed: 06/17/2016 Time Performed: 20:56:05 PTAGE: 65 years EKG: Sinus rhythm NORMAL ECG COMPARED TO PRIOR ELECTROCARDIOGRAM, Rate has increased. PREVIOUS TRACING : 03/16/2016 04.52 DOCTOR: Negro Mcintosh Interpretating Date/Time 06/18/2016 07:47:29
[2016-06-23] MEDS ORDERED: HOME1TAB8 PO (10:30)
[2016-06-23] MEDS ORDERED: BC FPOW12 (10:31)
== END 2016-06-17 23:59 | disposition home or self-care (01) ==
LOC: NEPE 20:45
DX: R56.9 Unspecified convulsions (principal); M25.511 Pain in right shoulder; R07.9 Chest pain, unspecified; Z79.01 Long term (current) use of anticoagulants
CPT/HCPCS: 70450; 71010; 72125; 73030; 80053; 80307; 81001; 82550; 82552; 84484; 85025; 93005; 96360; 99285; J7030

== ENCOUNTER 2016-08-03 08:05 | Day surgery (SDC) | payer OTHER ==
[~2016-08-03 08:05] MED LIST changes: +BC FPOW12; +HOME1TAB8 PO
[2016-08-03] MEDS ORDERED: FERR200T PO (08:50)
[2016-08-03] MEDS ORDERED: VITA100T65 PO (08:50)
[2016-08-03] MEDS ORDERED: MIDAZOLAM HCL 5 MG/5 ML VIAL ONE (09:13)
[2016-08-03] MEDS ORDERED: POVIDONE IODINE 5% (ANTISEPSIS KIT) 4 APPLICATIONS EACH NARE SCH (09:30)
[2016-08-03] MEDS ORDERED: VANCOMYCIN 1000 MG/NS 250 ML IV SCH ×2 (09:30)
[2016-08-03] MEDS ORDERED: CHLORHEXIDINE GLUCONATE 2 % 1 PACK (2 CLOTHS) TOPICAL SCH (09:30)
[2016-08-03] MEDS ORDERED: NS 1000 ML IV SCH (09:30)
[2016-08-03] MEDS ORDERED: ceFAZolin 2 GM PREMIX 50 ML IV SCH (09:30)
--- NOTE | 2016-08-03 11:12 | MR ---
cc: BENJY ROBERTS M.D., HANSCY M.D. DATE 08/03/2016 PROCEDURE Loop recorder insertion. INDICATIONS Mrs. Edward is a 65-year-old female with recurrent episodes of syncope, referred for loop recorder insertion. The risks, the nature and the benefit of the procedure are clearly stated to her. The risks include pneumothorax, infection, need for endotracheal intubation and even . She understood and agreed to proceed. PROCEDURE After written informed consent was obtained, the patient was brought to the DOC Unit where she was prepped and draped in the usual sterile fashion. Conscious sedation was initiated and maintained throughout the procedure using intravenous Versed and fentanyl. Once sedation was verified, the left parasternal area was anesthetized with 2% Xylocaine. Using the cutter a less than 1 cm incision was made. Subsequently the loop was inserted under the skin. After adequate sensing obtained, the border was reapproximated using Steri-Strips and Dermabond. No incident reported. The patient tolerated procedure. Blood loss minimal. 1. IMPLANTED HARDWARE: The implanted loop recorder is a [employer] model number Reveal LINQ, serial number [id number]. 2. SENSING: Sensing is at 0.91 mV. 3. SETTINGS: The device is set for gonzalez under 30 and tachy over 167. CONCLUSION Successful loop recorder insertion. COMMENT AND RECOMMENDATIONS The patient is going to be observed and discharged home later today. Moshe Kelley MD HS/SSB /10:42 AM /11:06 AM
== END 2016-08-03 10:30 | disposition home or self-care (01) ==
LOC: HDOC 08:05 → HDIC 08:07 → HDOC 10:30
PROVIDERS: ATTEND Internal Medicine Interventional Cardiology
DX: R55 Syncope and collapse (principal)
CPT/HCPCS: 33282; C1764; J0690; J2250; J3010

== ENCOUNTER 2016-10-07 06:37 | Day surgery (SDC) | payer OTHER ==
[2016-10-07] VITALS (10 sets, daily range): BP systolic 112–140; BP diastolic 69–82; PULSE 56–73; RESP 16–18; TEMP 97.4–98.2; O2SAT 92–97
[~2016-10-07] VITALS: Ht 165.1 cm; Wt 83.0 kg
[~2016-10-07 06:37] MED LIST changes: -BC FPOW12; +FERR200T PO; -FERR325T PO; -HOME1TAB8 PO; +VITA100T65 PO
[2016-10-07] MEDS ORDERED: SODIUM CHLORID 0.9% 500 ML INJ 500 ML IV SCH (07:15)
[2016-10-07] MEDS ORDERED: LORazepam 1 MG TAB SL SCH (07:15)
[2016-10-07] MEDS ORDERED: POVIDONE IODINE 5% (ANTISEPSIS KIT) 4 APPLICATIONS EACH NARE PRN (07:30)
[2016-10-07] MEDS ORDERED: SODIUM CHLORID 0.9% 500 ML IV PRN (07:30)
[2016-10-07] MEDS ORDERED: LEVOFLOXACIN 500 MG PREMIX INJ 100 ML IV ONE (07:30)
[2016-10-07] MEDS ORDERED: LACTATED RINGER'S 1000 ML IV PRN (07:30)
[2016-10-07] MEDS ORDERED: CHLORHEXIDINE GLUCONATE 2 % 1 PACK (2 CLOTHS) TOPICAL PRN (07:30)
[2016-10-07] MEDS ORDERED: METOPROLOL TARTRATE 25 MG TAB PO PRN (07:30)
[2016-10-07] MEDS ORDERED: INSULIN HUMAN REGULAR 1,000 UNITS/10 ML VIAL SQ PRN (07:30)
[2016-10-07] MEDS ORDERED: HEPARIN SODIUM - IV 10,000 UNITS/10 ML VIAL ONE ×2 (07:34→09:02)
[2016-10-07] MEDS ORDERED: PROTAMINE SULFATE 50 MG/5 ML VIAL ONE (07:34)
[2016-10-07] MEDS ORDERED: HEPARIN-D5W 25,000 U/250 ML 250 ML ONE (07:34)
[2016-10-07] MEDS ORDERED: ISOPROTERENOL HCL 1 MG/5 ML AMP ONE (07:34)
[2016-10-07 07:45] LABS: APTT (PATIENT) 26.4 SEC (24.3-30.1); INTERNATIONAL NORMALIZED RATIO 0.9 RATIO; PROTHROMBIN TIME - PATIENT 10.2 SEC (9.8-11.6)
[2016-10-07 07:55] LABS: AUTOMATED NEUTROPHIL # 9.7 TH/MM3 (1.8-7.7); BASOPHIL # 0.1 TH/MM3 (0-0.2); BASOPHIL % 0.9 % (0.0-2.0); EOSINOPHIL # 0.3 TH/MM3 (0-0.4); HEMATOCRIT 37.4 % (35.0-46.0); HEMO FLAGS DIFF FINAL; LYMPH % 15.4 % (9.0-44.0); MEAN CELL VOLUME 84.3 FL (80.0-100.0); MEAN CORPUSCULAR HEMOGLOBIN 27.6 PG (27.0-34.0); MEAN CORPUSCULAR HGB CONC 32.7 % (32.0-36.0); MONO % 7.1 % (0.0-8.0); NEUT % 74.6 % (16.0-70.0); PLATELET COUNT 276 TH/MM3 (150-450); RED BLOOD COUNT 4.44 MIL/MM3 (4.00-5.30); RED CELL DISTRIBUTION WIDTH 15.2 % (11.6-17.2); WHITE BLOOD COUNT 13.1 TH/MM3 (4.0-11.0)
[2016-10-07 08:06] LABS: BICARBONATE 26.1 MEQ/L (21.0-32.0)
[2016-10-07] MEDS ORDERED: HEPARIN-NS/PF INJ 500 ML ONE (08:24)
[2016-10-07] MEDS ORDERED: CARD120C4 PO (08:30)
[2016-10-07] MEDS ORDERED: FERR325T8 PO (08:30)
[2016-10-07] MEDS ORDERED: ATROPINE SULFATE 1 MG/ML VIAL IV PRN (10:30)
[2016-10-07] MEDS ORDERED: LORazepam 2 MG/ML VIAL IV PRN (10:30)
[2016-10-07] MEDS ORDERED: SODIUM CHLOR 0.9% 250 ML INJ 250 ML IV PRN (10:30)
[2016-10-07] MEDS ORDERED: BACITRACIN OINT 0.9 GM PKT TOP ONE (10:30)
[2016-10-07] MEDS ORDERED: METOCLOPRAMIDE HCL 10 MG/2 ML VIAL IV PRN (10:30)
[2016-10-07] MEDS ORDERED: oxyCODONE/ACETAMINOPHEN 5 MG/325 MG TAB PO PRN ×2 (10:30)
[2016-10-07] MEDS ORDERED: LIDOCAINE HCL 1% 50 ML VIAL INFIL PRN (10:30)
[2016-10-07] MEDS ORDERED: ONDANSETRON HCL 4 MG/2 ML VIAL IV PRN (10:30)
[2016-10-07] MEDS ORDERED: FUROSEMIDE 40 MG/4 ML VIAL ONE (10:35)
--- NOTE | 2016-10-07 10:40 | CATHPROC ---
[employer] HIS Report Study Information Study Number Admission Scheduled Start Study Start [id number] Oct 07 2016 6:37AM 10/07/2016 Oct 07 2016 7:25AM [place] [facility] Electrophysiology Study Admit Source Facility Department Other [facility] - Manager Production Physician and Clinical Staff Initial Moshe Nash Transcribing Operator Head Linda Rojas,FILIPPO Other Anesthesia, ACQUISITION MARKETING COORDINATOR Recorder Sury Chan,ANDREEA Scrub Cinthia Alva,RT(R) TECH2 Procedures Performed Procedure Location (Site) Vessel Name ICE CATHETER INSERT RA Atruim RF Ablation LT. ATRIUM LT. ATRIUM Equipment Time Orthopedic Assistant Description Size Mfg Part Number Used/Scraped NEEDLE, TRANSSEPTAL NRG 98 08:42 [facility] [id number] Used C1 [employer]/ EP 08:42 KIT, TRANSDUCER / AFIB [id number] Used PACER [id number] CATHETER, TACTICATH ABLAT BUNDLE 08:42 BUNDLE-[facility] Used 65 BUNDLE *[id number] BUNDLE [id number] CATHETER, FR7 OPTIMA SPIRAL 08:42 BUNDLE-[facility] FR7 *[id number] Used BUNDLE BUNDLE [id number] 08:42 BUNDLE-[employer]IO CATHETER, JSN, QUAD BUNDLE FR 5 *[id number] Used BUNDLE [id number] 08:42 BUNDLE-[employer] [employer]IO CATHETER, JSN, QUAD BUNDLE FR 5 *[id number] Used BUNDLE [id number] SET, COOL POINT TUBING 08:42 BUNDLE-[facility] EUGENIO *[id number] Used BUNDLE BUNDLE SHEATH, FR8.5 STEERABLE SM 08:42 BUNDLE-[facility]. EUGENIO 71CM [id number] Used 71CM BUNDLE COVER, TRANSDUCER CABLE 08:42 [employer] [id number] Used ACUNAV 08:42 CORDIS/PACER SHEATH, FR10 KATIE 11CM FR 10 [id number] Used 08:42 CORDIS/PACER SHEATH, FR9 KATIE 11CM FR 9 [id number] Used [id number] 08:42 MEDLINE IND[employer] PACK, CCL CUSTOM * Used *[id number] 08:42 MEDLINE PACER HO, LIMB * 1440 *[id number] Used [id number] 08:[address] MEDICAL SHEATH, FR4.5 PRELUDE 11CM FR 4.5 Used [id number] 08:42 NAMIC TUBING, HIGH PRESSURE 48" 48" Used *[id number] 08:42 NAMIC TUBING, HIGH PRESSURE 48" 48" Used *[id number] 08:42 [employer] MEDICAL BLANKET,WARM AIR CCL * Used *[id number] 08:42 [facility] MEDICAL ELECTRODE KIT, SAUL X SURFACE * [id number] Used 08:42 [facility] MEDICAL SHEATH, EPS, FR6 FAST CATH FR 6 [id number] Used 08:42 [facility] MEDICAL SHEATH, EPS, FR7 FAST CATH FR 7 [id number] Used 08:42 [facility] MEDICAL SHEATH, EPS, FR8 FAST CATH FR 8 [id number] Used CATHETER, ACUNAV FR10 ICE [id number] 08:58 JÚNIOR FR 10 Used (JÚNIOR) *[id number] [facility] PAD, ELECTROSURGICAL 08:42 * [id number] *[id number] Used SURGICAL GROUNDING (BLUE) History: Allergies Allergy Reaction lactose GI UPSET History: Risk Factors Hypertension Yes Labs Hgb (g/dl) Hct (%) RBC (MIL/MM3) WBC (l/cumm) Platelets (thousands) 11.60-17.00 35.00-51.00 4.00-5.90 4.00-11.00 150.00-450.00 12.0 37 4.4 13 276 Glucose (mg/dl) BUN (mg/dl) Creatinine (mg/dl) BUN:Creatinine (1:x) 74.00-106.00 7.00-18.00 0.50-1.30 10.00-20.00 73 19 1.1 17.3 Na (meq/l) K (meq/l) 136.00-145.00 3.50-5.10 141 4 INR (PTT:PT) 0.90-1.10 0.9 Medication Medication Total Dose (Bolus/Oral) Medication Total Dosage/Unit 1% XYLOCAINE 40 mL HEPARIN 36371 units LASIX 40 mg PROTAMINE 40 mg Medications (Bolus/Oral) Medication Time Given Dosage/Unit Administered By Reason 1% XYLOCAINE 10/07/2016 8:47:20 AM 20 mL Moshe Kelley 20 mL 1% XYLOCAINE given in lab by Moshe Kelley in Left Groin via Subcutaneous. Ordered by Quintin Kelley. 1% XYLOCAINE 10/07/2016 8:56:00 AM 20 mL Moshe Kelley 20 mL 1% XYLOCAINE given in lab by Moshe Kelley in Right Groin via Subcutaneous. Ordered by Misti Kelley. HEPARIN 10/07/2016 9:00:43 AM 76143 units Anesthesia, ACQUISITION MARKETING COORDINATOR As per physicians ve rbal order 50935 units HEPARIN given in lab by Anesthesia, ACQUISITION MARKETING COORDINATOR via Peripheral IV. Ordered by Moshe Kelley. E[place] son: As per physicians verbal order. HEPARIN 10/07/2016 9:14:11 AM 2000 units Anesthesia, ACQUISITION MARKETING COORDINATOR As per physicians anaya bal order 2000 units HEPARIN given in lab by Anesthesia, ACQUISITION MARKETING COORDINATOR via Peripheral IV. Ordered by Moshe Kelley. Reas on: As per physicians verbal order. PROTAMINE 10/07/2016 10:24:10 AM 40 mg Anesthesia, ACQUISITION MARKETING COORDINATOR As per physicians verb al order 40 mg PROTAMINE given in lab by Anesthesia, ACQUISITION MARKETING COORDINATOR via Peripheral IV. Ordered by Moshe Kelley. Reason: As per physicians verbal order. LASIX 10/07/2016 10:24:27 AM 40 mg Anesthesia, ACQUISITION MARKETING COORDINATOR As per physicians verbal order 40 mg LASIX given in lab by Anesthesia, ACQUISITION MARKETING COORDINATOR via Peripheral IV. Ordered by Moshe Kelley. Reason: As per physicians verbal order. Medication (Drip) Medication Time Given Dosage/Unit Concentration/Unit Diluent (ml) Solution HEPARIN DRIP 10/07/2016 9:14:51 AM 1000 units/hr 14528 units 250 D5W 1000 units/hr HEPARIN DRIP given in lab by Anesthesia, ACQUISITION MARKETING COORDINATOR via Peripheral IV. Pump/Drip Flow = 10 ml /hr using [place] [address] units in 250 ml. Ordered by Moshe Kelley. Reason: As per physicians verbal order. ISUPREL 10/07/2016 9:57:49 AM 20 mcg/min 1 mg 250 NaCl .9 20 mcg/min ISUPREL given in lab by Anesthesia, ACQUISITION MARKETING COORDINATOR via Peripheral IV. Pump/Drip Flow = 300 ml/hr usi ng NaCl .9 with a concentration of 1 mg in 250 ml. Ordered by Moshe Kelley. ISUPREL 10/07/2016 10:06:34 AM 30 mcg/min 1 mg 250 NaCl .9 30 mcg/min ISUPREL given in lab by Anesthesia, ACQUISITION MARKETING COORDINATOR via Peripheral IV. Pump/Drip Flow = 450 ml/hr usi ng NaCl .9 with a concentration of 1 mg in 250 ml. Ordered by Moshe Kelley. Initial Case Assessment Cardiovascular HR Rhythm NIBP Chest Pain 53 sr 160/94 0 Edema Present Skin color Skin None Normal Warm Dry Circulatory - Right Pulses Dorsalis Pedis 2 Scale (0,1,2,3,4,d) Circulatory - Left Pulses Dorsalis Pedis 2 Scale (0,1,2,3,4,d) Circulatory - Lower Extremities Color Lower Right Color Lower Left Normal Normal Neurological State Oriented to time-place- Alert Moves all extremities person Respiration - General Respiration Rate SpO2 (%) (B/min) 20 97 Final Case Assessment Cardiovascular HR Rhythm NIBP Chest Pain 77 sr 120/52 0 Edema Present Skin color Skin None Normal Warm Dry Circulatory - Right Pulses Dorsalis Pedis 2 Scale (0,1,2,3,4,d) Circulatory - Left Pulses Dorsalis Pedis 2 Scale (0,1,2,3,4,d) Circulatory - Lower Extremities Color Lower Right Color Lower Left Normal Normal Neurological State Oriented to time-place- Lethargic Moves all extremities person Respiration - General Respiration Rate SpO2 (%) (B/min) 18 97 Chronological Log Time Study Chronological Log 8:03:03 Patient arrived via Bed. 8:03:07 Patient Name, D.O.B, / Armband Verified By R.N. 8:03:10 Consent signed by the physician and the patient and verified by the Manager Production staff. 8:03:14 Pre-op and post- op instructions given; patient acknowledges understanding of instructions. 8:03:17 Verbal Stimulation=2 Physical Stimulation=2 Airway=2 Respiration=1 TOTAL=8. (0=absent, 1=li mited, 2=present) 8:03:30 Anesthesia at bedside. Assumes care of patient. Monik 8:03:35 Patient has been NPO for More than 6Hrs. 8:03:39 Skin Breakdown-none per pt 8:03:49 Patient Warmer Placed on the Table. 8:05:54 Disposable Defibrillator Pads Placed On Patient. 8:05:55 Cherise Prominences Protected 8:05:57 A # 20 IV was noted in the Forearm (left). Grade = 0 0.9ns kvo 8:05:58 A # 20 IV was noted in the Forearm (right). Grade = 0 09ns kvo 8:05:59 History and physical on the chart or being dictated. Assessment: Initial Case, HR=53 BPM, Rhythm=sr, GOSU=956/94 mmhg, Chest Pain=0, Edema=None, Idalou r=Normal, Skin = Warm, Dry Right Pulses: Ash Ped=2 Left Pulses: Ash Ped=2 8:13:38 Lower Right Extremities: Color=Normal Lower Left Extremities: Color=Normal Neurological: State=Alert, Ox3, JACKSON Respiration: Resp=20 B/min, SpO2=97 % 8:15:36 Table restraints applied according to hospital policy 8:25:21 Anesthesiologist present for intubation. 8:30:50 Bilateral groins prepped with 2% chlorhexidine, and with a 3 min. waiting time. 8:38:47 MD arrived. 8:39:42 Reference ECG taken Time Out. Correct patient, procedure, procedure equipment, site and side verified with physician present. Time 8:43:11 concurred by MD, individual staff and ACQUISITION MARKETING COORDINATOR. Time Out #2 - Consents verified, patient in correct position, all results are labled and display ed, safety precautions 8:43:34 taken, antibiotics administered. Time out concurred by MD, individual staff and ACQUISITION MARKETING COORDINATOR in procedur e 8:43:50 Case Start 8:43:59 STEFANY in progress. 8:46:38 STEFANY complete. 8:47:20 20 mL 1% XYLOCAINE given in lab by Moshe Kelley in Left Groin via Subcutaneous. Ordered by Moshe Kelley. 8:47:40 Vascular access was obtained in the Fem Vein (left). 8:47:43 Vascular access was obtained in the Fem Vein (left). 8:47:47 Vascular access was obtained in the Fem Vein (left). 8:48:00 Vascular access was obtained in the Fem Art (left). A SHEATH, FR4.5 PRELUDE 11CM FR 4.5 was advanced into the Fem Art (left) using the Modified Seld cam technique. 8:48:10 0.9ns pressure bag connected. 8:48:40 A SHEATH, EPS, FR6 FAST CATH FR 6 was advanced into the Fem Vein (left) using the Modified S eldinger technique. 8:48:48 A SHEATH, EPS, FR7 FAST CATH FR 7 was advanced into the Fem Vein (left) using the Modified S eldinger technique. 8:48:53 A SHEATH, FR10 KATIE 11CM FR 10 was advanced into the Fem Vein (left) using the Modified Se simon technique. 8:56:00 20 mL 1% XYLOCAINE given in lab by Moshe Kelley in Right Groin via Subcutaneous. Ordered by Moshe Kelley. 8:57:07 Vascular access was obtained in the Fem Vein (right). 8:57:10 A SHEATH, EPS, FR8 FAST CATH FR 8 was advanced into the Fem Art (right) using the Modified S danieler technique. A SHEATH, FR8.5 STEERABLE SM 71CM BUNDLE 71CM was exchanged in the Fem Vein (right). This was ne cessary in 8:57:19 order for catheter support. 8:57:30 CATHETER, ACUNAV FR10 ICE (Revolut) FR 10 Was Postioned. A CATHETER, JSN, QUAD BUNDLE FR 5 was advanced vis Fem Vein (left) and placed in the CS. Placeme nt was visually 8:57:44 confirmed under fluoroscopy. A CATHETER, JSN, QUAD BUNDLE FR 5 was advanced vis Fem Vein (left) and placed in the HIS. Placem ent was 8:57:53 visually confirmed under fluoroscopy. 9:00:26 [place]. [address] units HEPARIN given in lab by Anesthesia, ACQUISITION MARKETING COORDINATOR via Peripheral IV. Ordered by Moshe Kelley . Reason: As per 9:00:43 physicians verbal order. 9:03:20 A eps was advanced to the right atrium and passed through the septal wall to the left atrium . 9:03:56 [place] out A CATHETER, FR7 OPTIMA SPIRAL BUNDLE FR7 was advanced vis Fem Vein (right) and placed in the LA. Placement 9:05:35 was visually confirmed under fluoroscopy. Mapping in progress. 9:07:00 Activated Clotting Time Drawn 9:13:19 ACT (Normal Range 90-180) = 308 2000 units HEPARIN given in lab by Anesthesia, ACQUISITION MARKETING COORDINATOR via Peripheral IV. Ordered by Moshe Kelley . Reason: As per 9:14:11 physicians verbal order. 1000 units/hr HEPARIN DRIP given in lab by Anesthesia, ACQUISITION MARKETING COORDINATOR via Peripheral IV. Pump/Drip Flow = 10 ml/hr using 9:14:51 D5[place] [address] units in 250 ml. Ordered by Moshe Kelley. Reason: As per dee reich verbal order. 9:19:46 Activated Clotting Time Drawn 9:23:52 MApping complete. Catheter was removed A CATHETER, TACTICATH ABLAT 65 BUNDLE was advanced vis Fem Vein (right) and placed in the LA. P lacement was 9:24:01 visually confirmed under fluoroscopy. 9:24:11 RF Ablation of the LT. ATRIUM with a CATHETER, TACTICATH ABLAT 65 BUNDLE. 9:35:06 ACT (Normal Range 90-180) = 358 9:50:38 Ablation continues 9:55:10 Ablation catheter removed A CATHETER, FR7 OPTIMA SPIRAL BUNDLE FR7 was advanced vis Fem Vein (right) and placed in the LA . Placement 9:55:30 was visually confirmed under fluoroscopy. 20 mcg/min ISUPREL given in lab by Anesthesia, ACQUISITION MARKETING COORDINATOR via Peripheral IV. Pump/Drip Flow = 300 ml/ hr using NaCl .9 9:57:49 with a concentration of 1 mg in 250 ml. Ordered by Moshe Kelley. 30 mcg/min ISUPREL given in lab by Anesthesia, ACQUISITION MARKETING COORDINATOR via Peripheral IV. Pump/Drip Flow = 450 ml/ hr using NaCl .9 10:06:34 with a concentration of 1 mg in 250 ml. Ordered by Moshe Kelley. 10:14:03 Isuprel off 10:21:12 Catheters removed without difficulty. A SHEATH, FR9 KATIE 11CM FR 9 was exchanged in the Fem Vein (right). This was necessary in ord er to achieve 10:22:40 vascular hemostasis. 10:22:[address], sutured, 0.9ns kvo connected and will be removed in Holding Area. 10:24:03 Sterile dressing applied to sites 40 mg PROTAMINE given in lab by Anesthesia, ACQUISITION MARKETING COORDINATOR via Peripheral IV. Ordered by Moshe Kelley. R florentin: As per 10:24:10 physicians verbal order. 40 mg LASIX given in lab by Anesthesia, ACQUISITION MARKETING COORDINATOR via Peripheral IV. Ordered by Moshe Kelley. Reaso n: As per physicians ::27 verbal order. 10:26:33 PACU called. Spoke to Cinthia. 10::46 Bedside Report will be given. 10:27:01 Case End 10:27:03 No case complications noted. 10:27:04 Cine recording checked. 10:27:38 Defibrillator and ground pads removed. Skin intact. Assessment: Final Case, HR=77 BPM, Rhythm=sr, IRAS=675/52 mmhg, Chest Pain=0, Edema=None, Color =Normal, Skin = Warm, Dry Right Pulses: Ash Ped=2 Left Pulses: Ash Ped=2 10:27:44 Lower Right Extremities: Color=Normal Lower Left Extremities: Color=Normal Neurological: State=Lethargic, Ox3, [place] Respiration: Resp=18 B/min, SpO2=97 % 10:36:47 Activated Clotting Time Drawn 10:38:01 ACT (Normal Range 90-180) = 122 10:45:24 Patient moved to stretcher End Study - Contrast Media Used In Study Contrast Total Opened (mL) Total Used (mL) Total Wasted (mL) Unspecified 0 0 0 End Study - Maximum Contrast Load Max Contrast Load (mL) 365.1 End Study - Radiation Exposure Fluoro Time (minutes) 3.7 End Study - Patient Disposition Complications Transferred To Interventional Outcome No Telemetry Bed successful
--- NOTE | 2016-10-07 10:43 | PD.CARD ---
Atrial Fibrillation Ablation PROCEDURE DATE: Oct 07, 2016 PROCEDURES PERFORMED: 1. Electrophysiology study on Isuprel infusion 2. CS cannulation 3. 3-D mapping 4. Transseptal approach 5. Right and left heart catheterization 6. Intracardiac echo 7. Radiofrequency ablation of atrial fibrillation 8. Pulmonary vein isolation 9. Posterior wall ablation 10. Anterior wall ablation 11. Cardioversion INDICATIONS FOR THE PROCEDURE Ms. Edward is a 66-year-old female with atrial fibrillation, symptomatic, previous ablation, admits for electrophysiology study and ablation. The risks, the nature and the benefits of the procedure were clearly stated to her. The risks include pneumothorax, cardiac perforation, stroke, need for open heart surgery and even . The patient understood and agreed to proceed. DESCRIPTION OF THE PROCEDURE IN DETAIL As written informed consent was obtained prior to esophageal echocardiogram, the patient was kept on the table where she was prepped and draped in the usual sterile fashion. Conscious sedation was initiated and maintained throughout the procedure by the anesthesiologist. Once sedation was verified, the right and left inguinal areas were anesthetized with 2% Xylocaine. Using modified Seldinger technique, the left femoral vein was cannulated on three occasions, three guidewires were advanced. Over the wire a 6, 7 and a 10-Israeli Hemaquet were advanced. Then the left femoral artery was cannulated on one occasion, one guidewire was advanced. Over the wire a 4-Israeli Hemaquet was advanced. Then the right femoral vein was cannulated on one occasion, one guidewire was advanced. Over the wire a 8-Israeli Hemaquet was advanced. Then under fluoroscopic guidance through the 6 and 7-Israeli Hemaquet, two 5-Israeli Linda curved quadripolar electrophysiology catheters were advanced and placed around the His as well as coronary sinus. Basic interval was measured. The patient was in sinus rhythm. Through the 10-Israeli Hemaquet, a Cordis Palacio AcuNav intracardiac echo catheter was advanced and placed at the right atrium. Multiple view was obtained. There was no pericardial effusion, pulmonary vein was seen, atrial septal was visualized. Then the 8-Israeli Hemaquet in the right femoral vein was exchanged for Agilis transseptal sheath that was placed all the way to the superior vena cava. Through the sheath a Jacqui needle was advanced, then the sheath, the dilator and the needle were progressed until foci engaged. Once engaged, the needle was advanced. RF was delivered for 2 seconds. I was able to cross into the left atrium. Once the needle crossed, the dilator was advanced. Once the dilator crossed, the sheath was advanced. Once the sheath crossed, the dilator and the needle were removed. At this point I did flood the system and fluid movement was seen in the left atrium the indicates the sheath is in good position. The patient already received 10,000 units of heparin. The goal is to keep an ACT around 350 during ablation. Then through the sheath a [facility]. Sekou 20 pulse circumferential catheter was advanced. Using Weimob endocardial solution mapping system, a two-dimensional configuration of the left atrium was obtained. Points were taken at the left superior and inferior veins, right superior and inferior veins, mitral valve, and appendage. Then through the sheath a [employer]. Sekou TactiCath 65cm 3.5mm irrigated tipped mapping and radiofrequency ablation catheter was advanced. Esophageal probe was placed temperature monitoring during ablation. When it increased to 0.5 degrees Celsius above baseline, I moved to a different area of the atrium. First I did isolate the left superior and inferior vein. There was signal at the left superior vein. I did make a big [place] mountain around the veins. Posterior was ablated. Then the right superior and inferior veins were isolated. I did remap the atrium. There is no significant signal in the veins. I did advance the circumferential catheter again into the vein. There was no signal into the vein , pacing from the vein showed no conduction to the atrium. Isuprel infusion was initiated at 30 mcg for over 20 minutes. No tachyarrhythmia was induced, post Isuprel no tachyarrhythmia was induced. At that point the procedure was complete. All catheters were removed, atrial septal sheath was exchanged for 9- Israeli Hemaquet, intracardiac echo showed no pericardial effusion. There is still good flow in the pulmonary vein. The patient is going to be transferred to the recovery room. No incident report. The patient tolerated the procedure. Blood loss was minimal. FINDINGS 1. Electrocardiogram: At baseline the patient was in sinus rhythm, post procedure electrocardiogram was unchanged. 2. Basic interval: Base cycle length was around 920. AH at 84 and HV at 36 milliseconds. 3. Tachyarrhythmia: Atrial fibrillation was mapped and ablated. The ablation was successful. CONCLUSION Successful electrophysiology study, mapping, radiofrequency ablation of atrial fibrillation, pulmonary vein isolation, posterior ablation,anterior wall ablation, repeat electrophysiology on isuprel infusion. COMMENTS AND RECOMMENDATIONS The patient is going to be transferred to the telemetry unit. Will be observed and when stable can be discharged home. Moshe Kelley MD Oct 07, 2016 10:43
[2016-10-07] MEDS ORDERED: *morphine SULFATE 8 MG/ML PERIprocedure ONLY ONE ×2 (10:58→13:01)
[2016-10-07] MEDS ORDERED: PILL SPLITTER OTHER PRN (11:00)
[2016-10-07] MEDS ORDERED: *MEPERIDINE 25 MG INJ VIAL PERIprocedural Use ONLY ONE (11:04)
[2016-10-07] MEDS ORDERED: *ONDANSETRON 4 MG VIAL PERIprocedural Use ONLY ONE (11:32)
[2016-10-07] MEDS: ALPRAZolam 0.5 MG TAB PO PRN (11:32)
[2016-10-07] MEDS ORDERED: DO NOT ADM ANY ANTICOAGULANT DRUGS PRN (12:15)
[2016-10-07] MEDS: ACETAMINOPHEN/HYDROcodone 325 MG/7.5 MG TAB PO PRN ×3 (12:15→23:17)
--- NOTE | 2016-10-07 13:02 | EKG ---
Date Performed: 10/07/2016 Time Performed: 11:11:21 PTAGE: 66 years EKG: JUNCTIONAL BRADYCARDIA MODERATE T-WAVE ABNORMALITY, CONSIDER ANTERIOR ISCHEMIA ABNORMAL ECG PREVIOUS TRACING : 06/17/2016 20.56 Compared to the previous tracing junctional bradycardia wit h Twave abnormalities are new DOCTOR: Wood Drake Interpretating Date/Time 10/07/2016 13:02:16
[2016-10-07] MEDS ORDERED: PROPOFOL 200 MG/20 ML AMP IV ONE (14:07)
--- NOTE | 2016-10-07 16:45 | EKG ---
Date Performed: 10/07/2016 Time Performed: 07:54:08 PTAGE: 66 years EKG: Sinus rhythm with PAC(s). Septal T wave changes are nonspecific Borderline ECG PREVIOUS TRACING : 06/17/2016 20.56 Compared to prior tracing no significant change DOCTOR: Wood Drake Interpretating Date/Time 10/07/2016 16:43:12
[2016-10-07] MEDS: FERROUS SULFATE 325 MG (65 MG ELEMENTAL IRON) TAB PO SCH (17:26)
[2016-10-07] MEDS ORDERED: fentaNYL CITRATE 250 MCG/5 ML AMP ONE (17:54)
[2016-10-07] MEDS: buPROPion HCL 150 MG SUSTAINED RELEASE TAB PO SCH (21:02)
[2016-10-07] MEDS: APIXABAN 5 MG TABLET PO SCH (21:03)
[2016-10-08] VITALS (8 sets, daily range): BP systolic 101–110; BP diastolic 57–59; PULSE 52–61; RESP 16; TEMP 97.7–98.5; O2SAT 93–96
[2016-10-08] MEDS: buPROPion HCL 150 MG SUSTAINED RELEASE TAB PO SCH (07:41)
[2016-10-08] MEDS: ALPRAZolam 0.5 MG TAB PO PRN (07:42)
[2016-10-08] MEDS: FERROUS SULFATE 325 MG (65 MG ELEMENTAL IRON) TAB PO SCH (07:42)
[2016-10-08] MEDS: APIXABAN 5 MG TABLET PO SCH (07:42)
[2016-10-08] MEDS: ACETAMINOPHEN/HYDROcodone 325 MG/7.5 MG TAB PO PRN (07:42)
--- NOTE | 2016-10-08 07:49 | HHI.PR ---
Subjective Remarks Back pain, no palpitation Objective Vital Signs Date Time Temp Pulse Resp B/P Pulse Ox O2 Delivery O2 Flow Rate FiO2 10/08/16 06:22 53 10/08/16 04:10 55 10/08/16 03:27 97.7 61 16 110/57 96 10/08/16 03:00 59 10/08/16 01:00 52 10/08/16 00:10 18 10/08/16 00:00 54 10/07/16 23:15 97.7 57 16 122/70 92 10/07/16 23:00 56 10/07/16 22:00 66 10/07/16 21:00 68 10/07/16 20:00 60 10/07/16 19:00 97.4 65 16 112/69 96 10/07/16 19:00 71 10/07/16 18:00 60 10/07/16 17:00 72 10/07/16 16:00 69 10/07/16 16:00 98.2 73 16 117/75 94 10/07/16 14:45 99.3 70 20 105/61 99 Nasal Cannula 2 10/07/16 14:30 71 16 114/55 99 Nasal Cannula 2 10/07/16 14:15 68 18 96/51 99 Nasal Cannula 2 10/07/16 14:00 69 20 119/57 98 Nasal Cannula 2 10/07/16 13:30 70 16 126/60 98 Nasal Cannula 2 10/07/16 13:00 68 22 122/58 98 Nasal Cannula 2 10/07/16 12:30 68 19 119/60 98 Nasal Cannula 2 10/07/16 12:00 66 16 125/60 98 Nasal Cannula 2 10/07/16 11:45 63 15 137/69 98 Nasal Cannula 2 10/07/16 11:30 61 18 128/62 98 Nasal Cannula 2 10/07/16 11:15 57 20 119/70 98 Nasal Cannula 2 10/07/16 11:00 58 15 120/57 99 Nasal Cannula 2 10/07/16 10:52 98.7 62 16 120/88 99 Nasal Cannula 2 10/07/16 09:34 97.9 56 18 140/82 97 I/O 10/07/16 10/07/16 10/07/16 10/08/16 10/08/16 10/08/16 07:00 15:00 23:00 07:00 15:00 23:00 Intake Total 1040 ml 240 ml 480 ml Output Total 1750 ml 400 ml 500 ml Balance -710 ml -160 ml -20 ml Intake Oral 40 ml 240 ml 480 ml Other 1000 ml Output Urine Total 1750 ml 400 ml 500 ml Estimated Blood Loss 0 ml # Bowel Movements 0 Result Diagram: 10/07/1615 10/07/1615 Imaging Alert, fully oriented Lungs: ventilated Heart: S1, S2 regular, no gallop abdomen: soft, no mass Ext: no edema Current Medications Medications (Trade) Dose Ordered Sig/Carol Route Start Time Stop Time Status Last Admin Sodium Chloride 500 ml @ 30 mls/hr [id number] IV 10/07/16 07:15 10/07/16 07:15 Lactated Ringer's 1,000 ml @ 30 mls/hr Q24H PRN IV 10/07/16 07:30 10/10/16 07:29 (NS 500 ml Inj) 500 ml @ 30 mls/hr [id number] PRN IV 10/07/16 07:30 10/10/16 07:29 (Ativan Inj) 0.5 mg UNSCH PRN IV 10/07/16 10:30 10/08/16 10:29 Atropine Sulfate 0.5 mg 0.5 mg UNSCH PRN IV 10/07/16 10:30 (NS 250 ml Inj) 250 ml @ 500 mls/hr ONCE PRN IV 10/07/16 10:30 10/08/16 10:29 (Reglan Inj) 10 mg Q4H PRN IV 10/07/16 10:30 (Zofran Inj) 4 mg Q4H PRN IV 10/07/16 10:30 10/08/16 01:43 (Xylocaine 1% Inj (50 ml)) 10 ml UNSCH PRN INFIL 10/07/16 10:30 10/08/16 10:29 (Xanax) 0.5 mg Q8H PRN PO 10/07/16 10:30 10/08/16 07:42 (Eliquis) 5 mg BID PO 10/07/16 21:00 10/08/16 07:42 (Wellbutrin Sr) 150 mg Q12HR PO 10/07/16 21:00 10/08/16 07:41 (Vitamin B12) 1,000 mcg DAILY PO 10/08/16 09:00 10/08/16 07:42 (Cardizem Cd) 120 mg DAILY PO 10/08/16 09:00 10/08/16 07:42 (Lexapro) 20 mg DAILY PO 10/08/16 09:00 (Estradiol) 0.5 mg DAILY PO 10/08/16 09:00 (Ferrous Sulfate) 325 mg BIDPC PO 10/07/16 18:00 10/08/16 07:42 ([place] 7.5-325 Mg) 1 tab Q6H PRN PO 10/07/16 10:30 10/08/16 07:42 (Requip) 1 mg HS PO 10/07/16 21:00 10/07/16 21:53 (Theragran) 1 tab DAILY PO 10/08/16 09:00 10/08/16 07:42 (Pill Splitter) 1 ea UNSCH PRN OTHER 10/07/16 11:00 Miscellaneous Information ALL NURSING DEPARTME... UNSCH PRN .XX 10/07/16 12:15 10/08/16 12:14 Assessment and Plan Problem List: (1) Atrial fibrillation Status: Acute Plan: SP ablation In sinus rhythm. Doing well. Will be DH. Follow up as scheduled (2) Hypertension Status: Chronic Plan: SBP 110 Moshe Kelley MD Oct 08, 2016 07:49
[2016-10-08 08:06] LABS: APTT (PATIENT) 28.7 SEC (24.3-30.1); PROTHROMBIN TIME - PATIENT 10.9 SEC (9.8-11.6)
[2016-10-08] MEDS ORDERED: CYANOCOBALAMIN 1,000 MCG TAB PO SCH (09:00)
[2016-10-08] MEDS ORDERED: MULTIVITAMIN TAB PO SCH (09:00)
[2016-10-08] MEDS ORDERED: DILTIAZEM-CD 120 MG CAP ER PO SCH (09:00)
[2016-10-08] MEDS ORDERED: ESCITALOPRAM OXALATE 20 MG TAB PO SCH (09:00)
[2016-10-08] MEDS ORDERED: ESTRADIOL 1 MG TAB PO SCH (09:00)
--- NOTE | 2016-10-25 12:46 | ECHRPT ---
Indication: Persistent atrial fibrillation CONCLUSIONS No clot seen in left atrium nor atrial appendage Normal left ventricular systolic function. Ejection fraction around 65% BP: / HR: Rhythm: Technical Quality: Medications Coscious sedation was administered by anesthesiology Complications none Proc. Components FINDINGS LEFT VENTRICLE Adequate left ventricular systolic function Ejection fraction around 65% LEFT ATRIUM Mild enlargement ATRIAL APPENDAGES No clot seen ATRIAL SEPTUM No right to left shunt MITRAL VALVE Mild mitral regurgitation PERICADIUM No effusion Moshe Kelley MD (Electronically Signed) Final Date:25 October 2016 12:45
== END 2016-10-08 09:46 | disposition home or self-care (01) ==
LOC: HDOC 06:37 → HDIC 06:40 → HCIN 15:08 → HDOC 10-08 09:46
PROVIDERS: ATTEND Internal Medicine Interventional Cardiology
DX: I48.91 Unspecified atrial fibrillation (principal); I10 Essential (primary) hypertension; D64.9 Anemia, unspecified; R55 Syncope and collapse; G89.4 Chronic pain syndrome; M54.9 Dorsalgia, unspecified; K58.9 Irritable bowel syndrome, unspecified; F43.10 Post-traumatic stress disorder, unspecified; Z87.891 Personal history of nicotine dependence; Z79.899 Other long term (current) drug therapy
CPT/HCPCS: 80048; 82948; 85002; 85025; 85610; 85730; 86850; 86900; 86901; 93005; 93312; 93320; 93325; 93613; 93623; 93656; 93662; C1730; C1731; C1732; C1759; C1766; C2630; J1644; J1940; J1956; J2175; J2270; J2405; J2720; J3010; J7040